=== PATIENT | male | born 1995 | race American Indian/Alaskan Native ===

== ENCOUNTER 2016-11-12 13:47 | Inpatient (IN) | payer OTHER ==
[2016-11-12] MEDS ORDERED: NACL 0.9% 1000 ML 1,000 ML IV ONE ×2 (14:12→15:50)
[2016-11-12] MEDS ORDERED: ZOFRAN IV ONE (14:28)
[2016-11-12] MEDS ORDERED: MORPHINE IV ONE (14:28)
[2016-11-12 15:24] LABS: Mean Corpuscular HGB Conc 31 % (32-34); Mean Corpuscular Hemoglobin 28 pg (28-32); Mean Corpuscular Volume 89 fl (84-94); Platelet Count 222 K/mm3 (140-440); Red Blood Count 5.44 M/mm3 (3.65-5.03); Red Cell Distribution Width 13.4 % (13.2-15.2); White Blood Count 18.4 K/mm3 (4.5-11.0)
[2016-11-12 15:41] LABS: Bilirubin,Urine NEG (Negative); Blood,Urine NEG (Negative); Ketones,Urine 80 mg/dL (Negative); Leukocyte Esterase,Urine NEG (Negative); Mucus,Urine FEW /HPF; Nitrite,Urine NEG (Negative); Protein,Urine <15 mg/dL mg/dL (Negative); Urobilinogen,Urine < 2.0 mg/dL (<2.0); WBC,Urine < 1.0 /HPF (0.0-6.0)
[2016-11-12 15:43] LABS: Alanine Aminotransferase 30 units/L (7-56); Albumin 4.3 g/dL (3.9-5); Albumin/Globulin Ratio 1.4 %; Alkaline Phosphatase 147 units/L (35-129); Anion Gap 46 mmol/L; BUN/Creatinine Ratio 13.12; Bilirubin,Total 0.3 mg/dL (0.1-1.2); Blood Urea Nitrogen 21 mg/dL (9-20); Calcium 9.6 mg/dL (8.4-10.2); Carbon Dioxide 14 mmol/L (22-30); Chloride 88.1 mmol/L (98-107); Potassium 5.3 mmol/L (3.6-5.0); Sodium 143 mmol/L (137-145); Total Protein 7.3 g/dL (6.3-8.2)
[2016-11-12 15:45] LABS: Glucose 679 mg/dL (75-100)
[2016-11-12 15:46] LABS: Hematocrit 48.4 % (35.5-45.6)
[2016-11-12] MEDS ORDERED: D50W (25GM) IV PRN (15:52)
--- NOTE | 2016-11-12 15:55 | Emergency Department Report ---
HPI - General Chief Complaint: Hyperglycemia Time Seen by Provider: 11/12/16 14:12 - HPI HPI: The patient is a 20-year-old male with a history of diabetes. The patient presents for evaluation of abdominal pain, generalized, cramping in quality, 7/ 10 in severity, exacerbated with retching, and associated with nausea and multiple episodes of nonbilious, nonbloody emesis. The patient states that his symptoms are consistent with previous episodes of DKA. The patient denies fever , chills, night sweats, diarrhea, blood in the stool, dark tarry stool, dysuria , hematuria, flank pain, genital discharge, inability to pass flatus. ED Past Medical Hx - Past Medical History Hx Diabetes: Yes - Social History Smoking Status: Never Smoker Substance Use Type: None - Medications Home Medications: Home Medications Medication Instructions Recorded Confirmed Last Taken Type Insulin Aspart [NovoLOG Flexpen] 08/29/14 08/29/14 11/11/16 History Insulin Glargine,Hum.rec.anlog 33 units SQ HS 08/29/14 08/29/14 11/11/16 History [Lantus] ED Review of Systems ROS: Stated complaint: HIGH BLOOD SUGAR Other details as noted in HPI Constitutional: denies: fever ENT: denies: throat or neck pain Respiratory: denies: cough, shortness of breath Cardiovascular: denies: chest pain Endocrine: denies unexplained weight loss or gain Gastrointestinal: reports abdominal pain, nausea Genitourinary: denies: dysuria Musculoskeletal: denies: leg swelling Skin: denies: rash Neurological: denies: headache Hematological/Lymphatic: denies: easy bleeding or easy bruising Psych: denies sadness or hopelessness Physical Exam - Physical Exam Vital Signs: Vital Signs 11/12/16 11/12/16 11/12/16 13:57 14:26 14:38 Temperature 98.3 F Pulse Rate 127 H 119 H Respiratory 24 18 19 Rate Blood Pressure 122/77 O2 Sat by Pulse 98 99 93 Oximetry 11/12/16 11/12/16 11/12/16 14:41 14:51 14:52 Temperature Pulse Rate 113 H 118 H Respiratory 16 16 Rate Blood Pressure 92/50 O2 Sat by Pulse 93 Oximetry Physical Exam: General: well-nourished, well-developed, no acute distress Head: Normocephalic, atraumatic Eyes: normal sclera ENT: Mucous membranes are pale and dry Neck: No neck stiffness, no cervical adenopathy Respiratory: Breath sounds equal bilaterally, no wheezing, rales, or rhonchi Cardio: S1 and S2 present, no murmurs, rubs, gallops, capillary refill is delayed Abdomen: Normoactive bowel sounds, soft abdomen, generalized tenderness to palpation present, no rigidity, no guarding or rebound tenderness Chest WALL/Back: No tenderness to palpation of the chest wall, no CVA tenderness with percussion Musc: No pitting edema Skin: No rash Neuro: no facial drooping, normal speech Psych: Normal affect ED Course Vital Signs 11/12/16 11/12/16 11/12/16 13:57 14:26 14:38 Temperature 98.3 F Pulse Rate 127 H 119 H Respiratory 24 18 19 Rate Blood Pressure 122/77 O2 Sat by Pulse 98 99 93 Oximetry 11/12/16 11/12/16 11/12/16 14:41 14:51 14:52 Temperature Pulse Rate 113 H 118 H Respiratory 16 16 Rate Blood Pressure 92/50 O2 Sat by Pulse 93 Oximetry ED Medical Decision Making - Lab Data Result diagrams: 11/12/16 15:00 11/12/16 15:00 - Medical Decision Making The patient was seen and examined by myself. The patient is placed on a cardiac/vascular sonographer and continuous pulse ox. On initial evaluation, the patient was found to be in no distress. Evaluation orders were placed. The patient is given 2 L normal saline fluid bolus for treatment of dehydration. Lab results reveal low pH 7.13, elevated glucose 670, with low bicarbonate, elevated anion gap, and elevated ketones, consistent with DKA. Labs also show elevated potassium level, lactic acid 6.7, and elevated creatinine 1.6. IV insulin bolus and infusion are ordered. The on-call hospitalist service was contacted. They agreed to admit the patient for further treatment and close monitoring. The ED admit order was placed. The patient will be admitted in critical condition to the ICU. Critical Care Time: Yes Critical care time in (mins) excluding proc time.: 35 Critical care attestation.: Due to the critical nature of this patients presentation, which necessitated multiple bedside assessments, manipulation and supportive measures to prevent further life threatening deterioration, I would like to bill for a total of 35 minutes of critical care time. This was exclusive of any separately billable procedures. Critical Care Time: 35 ED Disposition Clinical Impression: Dehydration, Acute generalized abdominal pain, SRUTHI (acute kidney injury), Acute hyperkalemia DKA (diabetic ketoacidoses) Qualifiers: Diabetes mellitus type: type 1 Diabetes mellitus complication detail: without coma Qualified Code(s): E10.10 - Type 1 diabetes mellitus with ketoacidosis without coma Disposition: OP ADMITTED IP TO THIS HOSP Is pt being admited?: Yes Does the pt Need Aspirin: Yes Condition: Critical Time of Disposition: 15:35
[2016-11-12 16:22] LABS: Magnesium 2.2 mg/dL (1.7-2.3); Phosphorous 7.5 mg/dL (2.5-4.5)
--- NOTE | 2016-11-12 16:31 | Admit Criteria Form ---
Admission Criteria Documentation: DIABETES Clinical Indications for Admission to Inpatient Care (Place 'X' for any and all applicable criteria): Admission is indicated by presence of ALL (if I & II) or ANY ONE (if III or IV) of the following (1)(2)(3)(4): [X]I. Diabetes is uncontrolled as indicated by ANY ONE of the following: [X]a) Diabetic ketoacidosis as indicated by ALL of the following (8): [X]i) Hyperglycemia (eg, plasma glucose greater than 200 mg/ dL (11.1 mmol/L)) [X]ii) Acidosis (eg, arterial pH less than 7.30, serum bicarbonate level less than 15 mEq/L (mmol/L)) [X]iii) Moderate ketonuria or ketonemia [ ]b) Hyperglycemic hyperosmolar state as indicated by ALL of the following(9)(10): [ ]i) Neurologic dysfunction (eg, stupor, coma, hemiparesis , seizure)(13) [ ]ii) Plasma glucose greater than 600 mg/dL (33.3 mmol/L) [ ]iii) Serum osmolality greater than 320 mOsm/kg (mmol/kg) [ ]c) Severe signs or symptoms secondary to hyperglycemia indicated by ANY ONE of the following: [ ]i) Altered mental status(10) [ ]ii) Significant hypovolemia or dehydration [ ]iii) Intractable nausea or vomiting [ ]iv) Unexplained fever or severe infection [ ]v) Severe electrolyte abnormality (eg, hypokalemia, hyperkalemia, hypernatremia) [ ]II. Management at other levels of care (Also use Diabetes: Observation Care as appropriate) is not feasible because of ANY ONE of the following: [ ]a) Condition was not adequately corrected with treatment at other levels of care. [ ]b) Treatment at other levels of care is not appropriate because of condition severity (eg, hyperosmolar coma). [ ]III. Contraindications and/or Inappropriate clinical situations for Observational Care in patients with Diabetes, when ANY ONE of the following is required: [ ]a) Patient require specific diagnostic workup or therapeutic intervention 22 [ ]b) Patient with abnormal vital signs or altered mental status 23 [ ]IV. General contraindications and/or Inappropriate clinical situations for Observational Care in patients with Diabetes, when ANY ONE of the following is required: [ ]a) Prediction of prolongation of LOS based on ANY ONE of the following may be considered as a contraindication for observational care 2, 3, 4, 5, 6, 7, 8, 9, 10, 11 [ ]i) Age > 65 yrs. [ ]ii) Patient arriving by ambulance [ ]iii) Patient with high acuity [ ]iv) Patient requiring vital sign monitoring [ ]v) Patient on IV medication [ ]b) Systolic blood pressures 180mmHg 3,12 [ ]c) Patient with altered mental status including delirium and other alteration of consciousness, (3) [ ]d) Patient whose discharge disposition will be to a nursing home home or rehabilitation home should not be managed in Emergency Department Observation Unit. CMS rule requires 3 days hospital stay before such placement.3,13 [ ]e) Patient with failure to thrive due to broad array of etiologies 3,16,17 [ ]f) Inability to ambulate 3,14 Extended stay beyond goal length of stay may be needed for(3)(20): [ ]a) Treatment of precipitating causes [ ]b) Development of hypoglycemia [ ]c) Complications of treatment [ ]d) Complications of decompensated diabetes (eg, acute gastric dilatation, persistent metabolic or neurologic derangement) [ ]e) Active Comorbidities [ ]f) Older patients( 65 years or older) The original [employer] content created by [employer] has been revised. The portions of the content which have been revised are identified through the use of italic text or in bold,and [facility] has neither reviewed nor approved the modified material. All other unmodified content is copyright [employer]. Please see references footnoted in the original [employer] edition 2016 Admission Criteria Met: Yes
[2016-11-12] MEDS ORDERED: NovoLIN R 100 UNITS in NACL 0.9% 99 ML IV SCH (17:00)
[2016-11-12] MEDS ORDERED: NACL 0.9% 1000 ML 1,000 ML ONE (20:23)
[2016-11-12] MEDS: D5W/0.45% NACL/KCL 20 MEQ 20 MEQ/1,000 ML BAG IV SCH (21:35)
[2016-11-12] MEDS ORDERED: NACL 0.9% 1000 ML 1,000 ML IV SCH (22:00)
--- NOTE | 2016-11-13 00:21 | Event Note ---
Date: 11/12/16 See H/p in reports DKA
[2016-11-13] MEDS ORDERED: DILAUDID IV PRN ×2 (00:34→09:20)
[2016-11-13] MEDS ORDERED: D50W (25GM) IV PRN (00:34)
[2016-11-13 00:51] LABS: Basophils % (Auto) 0.6 % (0.0-1.8); Hematocrit 40.2 % (35.5-45.6); Hemoglobin 13.2 gm/dl (11.8-15.2); Mean Corpuscular HGB Conc 33 % (32-34); Mean Corpuscular Hemoglobin 28 pg (28-32); Mean Corpuscular Volume 84 fl (84-94); Platelet Count 196 K/mm3 (140-440); Red Blood Count 4.79 M/mm3 (3.65-5.03); Red Cell Distribution Width 12.9 % (13.2-15.2)
[2016-11-13] MEDS ORDERED: NovoLIN R 100 UNITS in NACL 0.9% 99 ML IV SCH (01:00)
[2016-11-13 01:20] LABS: BUN/Creatinine Ratio 11.66; Blood Urea Nitrogen 14 mg/dL (9-20); Calcium 8.5 mg/dL (8.4-10.2); Carbon Dioxide 27 mmol/L (22-30); Chloride 103.4 mmol/L (98-107); Glucose 153 mg/dL (75-100); Magnesium 2.1 mg/dL (1.7-2.3); Sodium 143 mmol/L (137-145)
[2016-11-13 01:21] LABS: Anion Gap 17 mmol/L
--- NOTE | 2016-11-13 01:21 | History and Physical Report ---
CHIEF COMPLAINT: Abdominal pain and generalized cramping since morning. 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 The patient has a history of juvenile diabetes and is on insulin 33 units at night time of Lantus and also sliding scale before each meal. The patient states he has been compliant. No fever, no chills. The patient had multiple episodes of DKA. No dysuria, no flank pain. No urinary frequency. PAST MEDICAL HISTORY: As mentioned, juvenile diabetes. SOCIAL HISTORY: Does not smoke. FAMILY HISTORY: No hypertension, no diabetes. CURRENT MEDICATIONS: Lantus 33 units subQ at bedtime and NovoLog FlexPen with 6-10 units depending on sliding scale before each meals. REVIEW OF SYSTEMS: Significant for nausea, vomiting and severe abdominal pain, which is about 7 on a scale of 1-10. CONSTITUTION: No fever, no chills. RESPIRATORY: No cough, no shortness of breath. CARDIOVASCULAR: No chest pain, no palpitations. ENDOCRINE: No unexplained weight loss or gain. GASTROINTESTINAL: Abdominal pain, nausea, vomiting as mentioned in history of present illness. GENITOURINARY: Denies dysuria, flank pain. MUSCULOSKELETAL: No leg pain. No joint pains. SKIN: No rashes. CENTRAL NERVOUS SYSTEM: No headaches. HEMATOLOGIC AND LYMPHATIC: Denies easy bleeding or easy bruising. PSYCHIATRIC: Denies sadness, depression and anxiety. A 14-point review of system was done, essentially negative. PHYSICAL EXAMINATION: GENERAL: Young male, lying in slight distress secondary to abdominal pain. VITAL SIGNS: Temperature is 98.3, pulse is 127, respiratory rate is 24, blood pressure is 122/77. HEENT: Unremarkable. Tongue dry. NECK: Supple, no lymphadenopathy, no thyromegaly. LUNGS: Clear to auscultation and percussion. Good air entry. CARDIOVASCULAR: S1, S2 heard. No gallop, no murmur, no rub. Apical impulse in left fifth intercostal space and midclavicular line. ABDOMEN: Tender in the epigastric periumbilical region. No guarding, no rigidity. Bowel sounds are normal. EXTREMITIES: Good pedal pulses. No pedal edema. CENTRAL NERVOUS SYSTEM: Alert and oriented x 4, nonfocal exam. LABORATORY DATA: Significant for white count of 18,400. H is 15.0 and 48.4, platelet count is 222,000. Venous pH is 7.127. Sodium is 143, potassium is 5.3, chloride is 88, bicarbonate is 14 and low, glucose is 609 and lactic acid is 6.7, alkaline phosphatase is 147. Phosphorus was 7.5. Urine is negative except for glucose of more than 500, specific gravity is 1.023 ketones 87. ASSESSMENT AND PLAN: 1. Diabetic ketoacidosis. The patient was initiated on DKA protocol. Also dietary consultation requested. The patient has slightly high potassium, which should correct with IV insulin drip. Acute abdominal pain, symptomatic treatment. Dilaudid 1 mg and Zofran 4 mg q.3 p.r.n. 2. Leukocytosis. No source of infection identified. We will start him on Rocephin 2 g IV piggyback empirically. 3. Deep venous thrombosis prophylaxis, Lovenox 40 mg subcutaneous daily. CRITICAL CARE STATEMENT: The patient being admitted to the ICU because of the DKA and IV insulin drip. Because of the high probability of clinically significant sudden or life threatening deterioration of cardiovascular system and endocrine system, required my full and direct attention, intervention and personal management. The aggregate critical care time was 35 minutes. The time spent performing reported procedures that includes the following data reviewed and interpretation, patient assessment and monitoring of vital signs, documentation, medication orders and management. JOB# [id number] LAYLA/ADA
[2016-11-13] MEDS: D5W/0.45% NACL/KCL 20 MEQ 20 MEQ/1,000 ML BAG IV SCH ×2 (05:26→13:18)
[2016-11-13 05:52] LABS: Blood Urea Nitrogen 14 mg/dL (9-20); Calcium 8.2 mg/dL (8.4-10.2); Carbon Dioxide 25 mmol/L (22-30); Chloride 104.2 mmol/L (98-107); Glucose 127 mg/dL (75-100); Potassium 3.8 mmol/L (3.6-5.0); Sodium 141 mmol/L (137-145)
[2016-11-13 05:57] LABS: Anion Gap 16 mmol/L
[2016-11-13 09:45] LABS: Anion Gap 17 mmol/L; BUN/Creatinine Ratio 10.83; Blood Urea Nitrogen 13 mg/dL (9-20); Calcium 8.6 mg/dL (8.4-10.2); Carbon Dioxide 24 mmol/L (22-30); Chloride 103.6 mmol/L (98-107); Glucose 124 mg/dL (75-100); Potassium 3.7 mmol/L (3.6-5.0); Sodium 141 mmol/L (137-145)
[2016-11-13] MEDS: ROCEPHIN/NS 2 GM/100 ML 2 GM/100 ML BAG IV SCH (10:29)
[2016-11-13] MEDS ORDERED: LEVEMIR SUB-Q ONE (10:30)
[2016-11-13] MEDS: LOVENOX SUB-Q SCH (10:37)
--- NOTE | 2016-11-13 11:25 | Consultation ---
History of Present Illness Consult date: 11/13/16 Requesting physician: JOSIE BEAN Reason for consult: other (DKA) History of present illness: PULMONARY/CCM CONSULT NOTE (Full dictation #) Please see dictated notes for full details Medications and Allergies Allergies Allergy/AdvReac Type Severity Reaction Status Date / Time No Known Allergies Allergy Unverified 08/27/15 15:25 Home Medications Medication Instructions Recorded Confirmed Last Taken Type Insulin Aspart [NovoLOG Flexpen] 08/29/14 08/29/14 11/11/16 History Insulin Glargine,Hum.rec.anlog 33 units SQ HS 08/29/14 08/29/14 11/11/16 History [Lantus] Active Meds: Active Medications Dextrose (D50w (25gm)) 0 ml IV PRN PRN PRN Reason: Hypoglycemia Enoxaparin Sodium (Lovenox) 40 mg SUB-Q QDAY [facility] Last Admin: 11/13/16 10:37 Dose: 40 mg Hydromorphone HCl (Dilaudid) 0.5 mg IV Q3H PRN PRN Reason: Pain , Severe (7-10) Potassium Chloride/Dextrose/Sod Cl (D5w/0.45% Nacl/Kcl 20 Meq) 20 meq in 1,000 mls @ 125 mls/hr IV DIRECT JONNY Last Admin: 11/13/16 05:26 Dose: 125 mls/hr Sodium Chloride (Nacl 0.9% 1000 Ml) 1,000 mls @ 125 mls/hr IV DIRECT JONNY Ceftriaxone Sodium (Rocephin/Ns 2 Gm/100 Ml) 2 gm in 100 mls @ 200 mls/hr IV Q24HR JONNY Last Admin: 11/13/16 10:29 Dose: 200 mls/hr Influenza Virus Vaccine Quadrival (Fluarix Quad [id number](36 Mos+)) 60 mcg IM .ONCE ONE Stop: 11/13/16 12:01 Pneumococcal Polyvalent Vaccine (Pneumovax 23) 0.5 ml IM .ONCE ONE Stop: 11/13/16 12:01 Physical Examination Vital signs: Vital Signs Temp Pulse Resp BP Pulse Ox 98.3 F 127 H 24 122/77 98 11/12/16 13:57 11/12/16 13:57 11/12/16 13:57 11/12/16 13:57 11/12/16 13:57 Results - Laboratory Findings CBC and BMP: 11/13/16 00:34 11/13/16 09:02 Abnormal lab findings: Abnormal Labs 11/12/16 11/12/16 11/12/16 21:06 22:22 23:42 WBC RDW Lymph % (Auto) [place] # Seg Neutrophils % Seg Neutrophils # Glucose POC Glucose 198 H 159 H 152 H Calcium Phosphorus 11/13/16 11/13/16 11/13/16 00:34 00:34 00:46 WBC 15.0 H RDW 12.9 L Lymph % (Auto) 8.1 L [place] # 1.0 H Seg Neutrophils % 84.9 H Seg Neutrophils # 12.7 H Glucose 153 H POC Glucose 166 H Calcium Phosphorus 2.0 L D 11/13/16 11/13/16 11/13/16 05:30 06:37 09:02 WBC RDW Lymph % (Auto) [place] # Seg Neutrophils % Seg Neutrophils # Glucose 127 H 124 H POC Glucose 123 H Calcium 8.2 L Phosphorus
[2016-11-13] MEDS ORDERED: PNEUMOVAX 23 IM ONE (12:00)
[2016-11-13] MEDS ORDERED: FLUARIX QUAD 2016-2017(36 MOS+) IM ONE (12:00)
[2016-11-13 13:31] LABS: Blood Urea Nitrogen 12 mg/dL (9-20); Calcium 8.7 mg/dL (8.4-10.2); Carbon Dioxide 24 mmol/L (22-30); Glucose 137 mg/dL (75-100); Potassium 3.7 mmol/L (3.6-5.0); Sodium 141 mmol/L (137-145)
[2016-11-13 13:32] LABS: Anion Gap 20 mmol/L; Chloride 100.6 mmol/L (98-107)
--- NOTE | 2016-11-13 14:43 | Event Note ---
Date: 11/13/16 Critical Care Consult placed due to need for I.V. insulin therapy Seen and examined and doing better Off IV insulin and transferring to floor ...will sign off
--- NOTE | 2016-11-13 17:22 | Progress Note ---
Assessment and Plan Assessment and plan: Patient is a 20-year-old -Indian male with a history of juvenile diabetes admitted with abdominal pain, generalized cramping, she is vomiting since morning of admission was noted to have DKA and was admitted for the management. He denies any sick contact denies any antidepressant having any kind of gastric enteritis. * DKA-now resolved * Diabetes mellitus juvenile type * Leukocytosis-reactive * Abdominal pain * Gastroenteritis Plan * Transfer patient to the medical floor as an ion gap has closed * Restart home medication with Lantus 33 units at nighttime with sliding scale coverage during the day * Diabetic education considered multiple episodes of DKA * Compliance stressed in detail * Monitor leukocytosis to ensure resolution * DVT and GI prophylaxis History Interval history: Patient seen and examined this morning in no acute distress, reports some improvement. Denies any chest pain, nausea, vomiting, diarrhea No fever noted blood pressure controlled No adverse events reported to me by nursing staff Hospitalist Physical - Physical exam Narrative exam: VITAL SIGNS: Reviewed. GENERAL: The patient appeared well nourished and normally developed. Vital signs as documented. HEAD: No signs of head trauma. EYES: Pupils are equal. Extraocular motions intact. EARS: Hearing grossly intact. MOUTH: Oropharynx is normal. NECK: No adenopathy, no JVD. CHEST: Chest with clear breath sounds bilaterally. No wheezes, rales, or rhonchi. CARDIAC: Regular rate and rhythm. S1 and S2, without murmurs, gallops, or rubs. VASCULAR: No Edema. Peripheral pulses normal and equal in all extremities. ABDOMEN: Soft, without detectable tenderness. No sign of distention. No rebound or guarding, and no masses palpated. Bowel Sounds normal. MUSCULOSKELETAL: Good range of motion of all major joints. Extremities without clubbing, cyanosis or edema. NEUROLOGIC EXAM: Alert and oriented x 3. No focal sensory or strength deficits. Speech normal. Follows commands. PSYCHIATRIC: Mood normal. SKIN: No rash or lesions. - Constitutional Vitals: Temp Pulse Resp BP Pulse Ox 264 F H 75 15 116/85 97 11/13/16 00:21 11/13/16 16:01 11/13/16 16:01 11/13/16 16:01 11/13/16 12:00 Results - Labs CBC & Chem 7: 11/13/16 00:34 11/13/16 13:00 Labs: Laboratory Last Values WBC 15.0 K/mm3 (4.5-11.0) H 11/13/16 00:34 RBC 4.79 M/mm3 (3.65-5.03) 11/13/16 00:34 Hgb 13.2 gm/dl (11.8-15.2) 11/13/16 00:34 Hct 40.2 % (35.5-45.6) D 11/13/16 00:34 MCV 84 fl (84-94) D 11/13/16 00:34 MCH 28 pg (28-32) 11/13/16 00:34 MCHC 33 % (32-34) 11/13/16 00:34 RDW 12.9 % (13.2-15.2) L 11/13/16 00:34 Plt Count 196 K/mm3 (140-440) 11/13/16 00:34 Lymph % (Auto) 8.1 % (13.4-35.0) L 11/13/16 00:34 [place] % (Auto) 6.4 % (0.0-7.3) 11/13/16 00:34 Eos % (Auto) 0.0 % (0.0-4.3) 11/13/16 00:34 Baso % (Auto) 0.6 % (0.0-1.8) 11/13/16 00:34 Lymph # 1.2 K/mm3 (1.2-5.4) 11/13/16 00:34 [place] # 1.0 K/mm3 (0.0-0.8) H 11/13/16 00:34 Eos # 0.0 K/mm3 (0.0-0.4) 11/13/16 00:34 Baso # 0.1 K/mm3 (0.0-0.1) 11/13/16 00:34 Seg Neutrophils % 84.9 % (40.0-70.0) H 11/13/16 00:34 Seg Neutrophils # 12.7 K/mm3 (1.8-7.7) H 11/13/16 00:34 VBG pH 7.127 (7.320-7.420) L* 11/12/16 15:00 Sodium 141 mmol/L (137-145) 11/13/16 13:00 Potassium 3.7 mmol/L (3.6-5.0) 11/13/16 13:00 Chloride 100.6 mmol/L (98-107) 11/13/16 13:00 Carbon Dioxide 24 mmol/L (22-30) 11/13/16 13:00 Anion Gap 20 mmol/L 11/13/16 13:00 BUN 12 mg/dL (9-20) 11/13/16 13:00 Creatinine 1.1 mg/dL (0.8-1.5) 11/13/16 13:00 Estimated GFR > 60 ml/min 11/13/16 13:00 BUN/Creatinine Ratio 10.90 % 11/13/16 13:00 Glucose 137 mg/dL (75-100) H 11/13/16 13:00 POC Glucose 78 (70-105) 11/13/16 16:52 Lactic Acid 6.7 mmol/L (0.7-2.0) H* 11/12/16 15:00 Calcium 8.7 mg/dL (8.4-10.2) 11/13/16 13:00 Phosphorus 2.0 mg/dL (2.5-4.5) L D 11/13/16 00:34 Magnesium 2.1 mg/dL (1.7-2.3) 11/13/16 00:34 Total Bilirubin 0.3 mg/dL (0.1-1.2) 11/12/16 15:00 AST 40 units/L (5-40) 11/12/16 15:00 ALT 30 units/L (7-56) 11/12/16 15:00 Alkaline Phosphatase 147 units/L (35-129) H 11/12/16 15:00 Total Protein 7.3 g/dL (6.3-8.2) 11/12/16 15:00 Albumin 4.3 g/dL (3.9-5) 11/12/16 15:00 Albumin/Globulin Ratio 1.4 % 11/12/16 15:00 Urine Color Straw (Yellow) 11/12/16 14:59 Urine Turbidity Clear (Clear) 11/12/16 14:59 Urine pH 5.0 (5.0-7.0) 11/12/16 14:59 Ur Specific [place] 1.023 (1.003-1.030) 11/12/16 14:59 Urine Protein <15 mg/dl mg/dL (Negative) 11/12/16 14:59 Urine Glucose (UA) >=500 mg/dL (Negative) 11/12/16 14:59 Urine Ketones 80 mg/dL (Negative) 11/12/16 14:59 Urine Blood Neg (Negative) 11/12/16 14:59 Urine Nitrite Neg (Negative) 11/12/16 14:59 Urine Bilirubin Neg (Negative) 11/12/16 14:59 Urine Urobilinogen < 2.0 mg/dL (<2.0) 11/12/16 14:59 Ur Leukocyte Esterase Neg (Negative) 11/12/16 14:59 Urine WBC (Auto) < 1.0 /HPF (0.0-6.0) 11/12/16 14:59 Urine RBC (Auto) 0.0 /HPF (0.0-6.0) 11/12/16 14:59 Urine Mucus Few /HPF 11/12/16 14:59 Ketones 87.0 mg/dL (0.2-2.8) H 11/12/16 15:00
[2016-11-13 17:38] LABS: Anion Gap 17 mmol/L; Blood Urea Nitrogen 10 mg/dL (9-20); Calcium 8.8 mg/dL (8.4-10.2); Carbon Dioxide 26 mmol/L (22-30); Chloride 100.4 mmol/L (98-107); Glucose 80 mg/dL (75-100); Potassium 3.3 mmol/L (3.6-5.0); Sodium 140 mmol/L (137-145)
[2016-11-13] MEDS ORDERED: INSULIN GLARGINE HUM REC ANLOG SQ SCH (22:00)
[2016-11-14 01:31] LABS: Anion Gap 16 mmol/L; Blood Urea Nitrogen 8 mg/dL (9-20); Calcium 8.4 mg/dL (8.4-10.2); Carbon Dioxide 26 mmol/L (22-30); Chloride 99.5 mmol/L (98-107); Glucose 92 mg/dL (75-100); Potassium 3.3 mmol/L (3.6-5.0); Sodium 138 mmol/L (137-145)
[2016-11-14 05:42] LABS: Hematocrit 38.3 % (35.5-45.6); Hemoglobin 12.6 gm/dl (11.8-15.2); Mean Corpuscular HGB Conc 33 % (32-34); Mean Corpuscular Hemoglobin 28 pg (28-32); Mean Corpuscular Volume 84 fl (84-94); Platelet Count 155 K/mm3 (140-440); Red Blood Count 4.54 M/mm3 (3.65-5.03); Red Cell Distribution Width 12.9 % (13.2-15.2); White Blood Count 6.3 K/mm3 (4.5-11.0)
[2016-11-14 05:59] LABS: Anion Gap 14 mmol/L; BUN/Creatinine Ratio 11.42; Blood Urea Nitrogen 8 mg/dL (9-20); Calcium 8.5 mg/dL (8.4-10.2); Carbon Dioxide 25 mmol/L (22-30); Chloride 99.4 mmol/L (98-107); Glucose 70 mg/dL (75-100); Potassium 3.1 mmol/L (3.6-5.0); Sodium 135 mmol/L (137-145)
[2016-11-14] MEDS ORDERED: K-DUR PO ONE ×2 (09:00→13:00)
--- NOTE | 2016-11-14 09:02 | Discharge Summary ---
Providers - Providers Date of Admission: 11/12/16 17:30 Date of discharge: 11/14/16 Attending physician: JOSIE BEAN MD 11/13/16 00:36 Consult to Dietitian/Nutrition [CONS] Routine Physician Instructions: Reason For Exam: DKA Reason for Consult: Nutrition Recommendations Reason for Consult: Diet education 11/13/16 07:34 Consult to Physician [CONS] Routine Consulting Provider: HALEIGH LAWSON Reason For Exam: critical care management Place consult to:: Dr. Lawson Notified:: Yes Comment:: talked to Dr. Lawson via phone Primary care physician: ENERGY ENGINEER Hospitalization Condition: Stable Disposition: DISCHARGED TO HOME OR SELFCARE Time spent for discharge: 35 mins Exam - Constitutional Vitals: Temp Pulse Resp BP Pulse Ox 98.3 F 78 18 119/77 98 11/14/16 04:00 11/14/16 04:00 11/14/16 04:00 11/14/16 04:00 11/14/16 04:00 Plan Activity: advance as tolerated, fall precautions Diet: diabetic Special Instructions: other (must be compliant with medication) Follow up with: PRIMARY CARE, [Primary Care Provider] - 3-5 Days Prescriptions: Insulin Aspart [NovoLOG Flexpen] See Protocol SUB-Q ACHS #30 [email or web address]
[2016-11-14 09:43] VITALS: BP 128/89
[2016-11-14] MEDS: ROCEPHIN/NS 2 GM/100 ML 2 GM/100 ML BAG IV SCH (13:00)
[2016-11-14] MEDS: LOVENOX SUB-Q SCH (13:00)
== END 2016-11-14 15:25 | disposition home or self-care (01) | DRG 638 ==
LOC: ED 13:47 → CC1 17:30 → 4A 11-13 17:31
PROVIDERS: ADMIT Internal Medicine; ATTEND Internal Medicine
PROC: 3E0234Z Introduction of Serum, Toxoid and Vaccine into Muscle, Percutaneous Approach (ICD-10-PCS; principal; 2016-11-13)
DX: E10.10 Type 1 diabetes mellitus with ketoacidosis without coma (principal); N17.9 Acute kidney failure, unspecified; E86.0 Dehydration; E87.5 Hyperkalemia; D72.829 Elevated white blood cell count, unspecified; K52.9 Noninfective gastroenteritis and colitis, unspecified; Z79.4 Long term (current) use of insulin; Z23 Encounter for immunization; Z79.899 Other long term (current) drug therapy
CPT/HCPCS: 36415; 80048; 80053; 81001; 82010; 82140; 82805; 82962; 83036; 83735; 84100; 85025; 85027; 90686; 90732; 94760; 96361; 96374; 96375; J0696; J1650; J1815; J1818; J2270; J2405; J7030

== ENCOUNTER 2017-09-03 19:12 | Inpatient (IN) | payer MEDICAID ==
[2017-09-03] MEDS ORDERED: ZOFRAN ODT PO ONE (20:10)
[2017-09-03 20:34] LABS: Basophils # (Auto) 0.1 K/mm3 (0.0-0.1); Basophils % (Auto) 0.6 % (0.0-1.8); Eosinophils % (Auto) 0.1 % (0.0-4.3); Hematocrit 46.3 % (35.5-45.6); Lymphocytes # (Auto) 1.4 K/mm3 (1.2-5.4); Lymphocytes % (Auto) 15.8 % (13.4-35.0); Mean Corpuscular HGB Conc 32 % (32-34); Mean Corpuscular Hemoglobin 28 pg (28-32); Mean Corpuscular Volume 86 fl (84-94); Monocytes # (Auto) 0.2 K/mm3 (0.0-0.8); Monocytes % (Auto) 2.2 % (0.0-7.3); Platelet Count 252 K/mm3 (140-440); Red Cell Distribution Width 13.2 % (13.2-15.2)
[2017-09-03 20:51] LABS: Bilirubin,Urine NEG (Negative); Blood,Urine NEG (Negative); Color,Urine Straw (Yellow); Mucus,Urine FEW /HPF; Nitrite,Urine NEG (Negative); Protein,Urine <15 mg/dL mg/dL (Negative); Urobilinogen,Urine < 2.0 mg/dL (<2.0); WBC,Urine < 1.0 /HPF (0.0-6.0)
[2017-09-03 21:13] LABS: Alanine Aminotransferase 30 units/L (7-56); Albumin 4.6 g/dL (3.9-5); BUN/Creatinine Ratio 20; Blood Urea Nitrogen 20 mg/dL (9-20); Calcium 9.7 mg/dL (8.4-10.2); Hemolysis Index 20
[2017-09-03 21:26] LABS: Bilirubin,Urine NEG (Negative); Blood,Urine NEG (Negative); Color,Urine Colorless (Yellow); Mucus,Urine FEW /HPF; Nitrite,Urine NEG (Negative); Protein,Urine <15 mg/dL mg/dL (Negative); Urobilinogen,Urine < 2.0 mg/dL (<2.0)
[2017-09-03] MEDS ORDERED: NACL 0.9% 1000 ML 2,000 ML IV ONE (23:18)
[2017-09-03] MEDS ORDERED: REGLAN IV ONE (23:18)
[2017-09-03] MEDS ORDERED: D50W (25GM) Syringe IV PRN (23:18)
--- NOTE | 2017-09-03 23:20 | Emergency Department Report ---
ED General Adult HPI - General Chief complaint: Nausea/Vomiting/Diarrhea Stated complaint: SICK/TYPE 1 DIABETIC Time Seen by Provider: 09/03/17 23:12 Source: patient, RN notes reviewed, old records reviewed Mode of arrival: Ambulatory Limitations: No Limitations - History of Present Illness Initial comments: This is a 21-year-old male who was previously unknown to this provider, has a past medical history of diabetic ketoacidosis. Presents to the ER with headache , nausea, weakness, malaise, generalized fatigue. Symptoms are constant for 1 day. They're constant. It did not radiate anywhere. It worsened physical exertion, eating, drinking, decreased with rest. Patient is concerned that he has carbon monoxide poisoning, because he reports that the oven/stove was on at home. -: Gradual Location: head Radiation: non-radiation Quality: aching Consistency: constant Improves with: rest Worsens with: eating, movement Associated Symptoms: headaches, loss of appetite, malaise, nausea/vomiting, weakness. denies: confusion, chest pain, cough, diaphoresis - Related Data Home Medications Medication Instructions Recorded Confirmed Last Taken Insulin Glargine,Hum.rec.anlog 33 units SQ HS 08/29/14 08/29/14 11/11/16 [Lantus] Previous Rx's Medication Instructions Recorded Last Taken Type Insulin Aspart [NovoLOG Flexpen] See Protocol SUB-Q ACHS #30 11/14/16 Unknown Rx insuln.pen Allergies Allergy/AdvReac Type Severity Reaction Status Date / Time No Known Allergies Allergy Unverified 08/27/15 15:25 ED Review of Systems ROS: Stated complaint: SICK/TYPE 1 DIABETIC Other details as noted in HPI Constitutional: malaise Eyes: denies: vision change ENT: denies: epistaxis Cardiovascular: denies: chest pain Gastrointestinal: nausea, vomiting Genitourinary: as per HPI Musculoskeletal: as per HPI Skin: as per HPI Neurological: as per HPI, headache, weakness Psychiatric: as per HPI ED Past Medical Hx - Past Medical History Hx Diabetes: Yes Hx HIV: No - Social History Smoking Status: Current Every Day Smoker Substance Use Type: None - Medications Home Medications: Home Medications Medication Instructions Recorded Confirmed Last Taken Type Insulin Glargine,Hum.rec.anlog 33 units SQ HS 08/29/14 08/29/14 11/11/16 History [Lantus] Insulin Aspart [NovoLOG Flexpen] See Protocol SUB-Q ACHS #30 11/14/16 Unknown Rx insuln.pen ED Physical Exam - General Limitations: No Limitations General appearance: alert, in no apparent distress - Head Head exam: Present: atraumatic, normocephalic - Eye Eye exam: Present: normal appearance, PERRL, EOMI, other (visual acuity intact to finger counting, color perception, reading at a close distance). Absent: nystagmus - ENT ENT exam: Present: normal exam, normal orophraynx, normal external ear exam - Neck Neck exam: Present: normal inspection, full ROM - Respiratory Respiratory exam: Present: normal lung sounds bilaterally. Absent: respiratory distress - Cardiovascular Cardiovascular Exam: Present: regular rate, normal rhythm, normal heart sounds. Absent: systolic murmur, diastolic murmur, rubs, gallop - GI/Abdominal GI/Abdominal exam: Present: soft, normal bowel sounds. Absent: distended, tenderness, guarding, rebound, rigid, pulsatile mass - Rectal Rectal exam: Present: deferred - Extremities Exam Extremities exam: Present: normal inspection, full ROM, normal capillary refill. Absent: tenderness, pedal edema, joint swelling, calf tenderness - Back Exam Back exam: Present: normal inspection, full ROM. Absent: tenderness, CVA tenderness (R), paraspinal tenderness, vertebral tenderness - Neurological Exam Neurological exam: Present: alert, oriented X3, CN II-XII intact, other ( Extraocular movements intact. Tongue midline. No facial droop. Facial sensation intact to light touch in the V1, V2, V3 distribution bilaterally. 5 and 5 strength in 4 extremities.. Sensation is intact to light touch in 4 extremities.). Absent: motor sensory deficit - Psychiatric Psychiatric exam: Present: normal affect, normal mood - Skin Skin exam: Present: warm, dry, intact, normal color. Absent: rash ED Course Vital Signs 09/03/17 09/03/17 09/03/17 19:57 23:00 23:16 Temperature 99 F Pulse Rate 75 88 108 H Respiratory 18 28 H 20 Rate Blood Pressure 121/72 129/66 O2 Sat by Pulse 100 99 Oximetry 09/03/17 09/03/17 09/04/17 23:30 23:46 00:00 Temperature Pulse Rate 94 H 122 H 87 Respiratory 17 12 18 Rate Blood Pressure 129/66 129/66 127/77 O2 Sat by Pulse 98 98 99 Oximetry 09/04/17 09/04/17 09/04/17 00:16 00:30 00:46 Temperature Pulse Rate 111 H 85 85 Respiratory 22 15 14 Rate Blood Pressure 127/77 127/77 127/77 O2 Sat by Pulse 96 100 97 Oximetry 09/04/17 09/04/17 09/04/17 01:00 01:15 01:30 Temperature Pulse Rate 88 136 H 83 Respiratory 16 17 14 Rate Blood Pressure 86/48 89/53 96/54 O2 Sat by Pulse 100 98 100 Oximetry 09/04/17 09/04/17 09/04/17 01:45 02:00 02:15 Temperature Pulse Rate 105 H 83 100 H Respiratory 17 14 20 Rate Blood Pressure 103/58 101/52 99/54 O2 Sat by Pulse 100 100 100 Oximetry 09/04/17 09/04/17 09/04/17 02:30 02:45 03:00 Temperature Pulse Rate 97 H 88 94 H Respiratory 12 15 18 Rate Blood Pressure 106/60 96/60 106/57 O2 Sat by Pulse 100 100 98 Oximetry 09/04/17 09/04/17 09/04/17 03:15 03:30 03:46 Temperature Pulse Rate 100 H 105 H 95 H Respiratory 16 13 16 Rate Blood Pressure 91/52 96/53 96/53 O2 Sat by Pulse 99 100 99 Oximetry ED Medical Decision Making - Lab Data Result diagrams: 09/03/17 20:19 09/04/17 03:48 Vital Signs 09/03/17 19:57 Temperature 99 F Pulse Rate 75 Respiratory 18 Rate Blood Pressure 121/72 O2 Sat by Pulse 100 Oximetry Lab Results 09/03/17 09/03/17 09/03/17 Range/Units 20:11 20:19 20:19 WBC 9.0 (4.5-11.0) K/mm3 RBC 5.40 H (3.65-5.03) M/mm3 Hgb 15.0 (11.8-15.2) gm/dl Hct 46.3 H (35.5-45.6) % MCV 86 (84-94) fl MCH 28 (28-32) pg MCHC 32 (32-34) % RDW 13.2 (13.2-15.2) % Plt Count 252 (140-440) K/mm3 Lymph % (Auto) 15.8 (13.4-35.0) % [place] % (Auto) 2.2 (0.0-7.3) % Eos % (Auto) 0.1 (0.0-4.3) % Baso % (Auto) 0.6 (0.0-1.8) % Lymph # 1.4 (1.2-5.4) K/mm3 [place] # 0.2 (0.0-0.8) K/mm3 Eos # 0.0 (0.0-0.4) K/mm3 Baso # 0.1 (0.0-0.1) K/mm3 Seg Neutrophils % 81.3 H (40.0-70.0) % Seg Neutrophils # 7.3 (1.8-7.7) K/mm3 VBG pH (7.320-7.420) Carboxyhemoglobin Sodium 136 L (137-145) mmol/L Potassium 4.7 (3.6-5.0) mmol/L Chloride 87.0 L (98-107) mmol/L Carbon Dioxide 19 L (22-30) mmol/L Anion Gap 35 mmol/L BUN 20 (9-20) mg/dL Creatinine 1.0 (0.8-1.5) mg/dL Estimated GFR > 60 ml/min BUN/Creatinine Ratio 20 % Glucose 632 H* (75-100) mg/dL POC Glucose 482 H (70-105) Calcium 9.7 (8.4-10.2) mg/dL Phosphorus (2.5-4.5) mg/dL Magnesium (1.7-2.3) mg/dL Total Bilirubin 0.60 (0.1-1.2) mg/dL AST 54 H (5-40) units/L ALT 30 (7-56) units/L Alkaline Phosphatase 113 (35-129) units/L Total Protein 7.3 (6.3-8.2) g/dL Albumin 4.6 (3.9-5) g/dL Albumin/Globulin Ratio 1.7 % Urine Color (Yellow) Urine Turbidity (Clear) Urine pH (5.0-7.0) Ur Specific [place] (1.003-1.030) Urine Protein (Negative) mg/dL Urine Glucose (UA) (Negative) mg/dL Urine Ketones (Negative) mg/dL Urine Blood (Negative) Urine Nitrite (Negative) Urine Bilirubin (Negative) Urine Urobilinogen (<2.0) mg/dL Ur Leukocyte Esterase (Negative) Urine WBC (Auto) (0.0-6.0) /HPF Urine RBC (Auto) (0.0-6.0) /HPF Urine Mucus /HPF 09/03/17 09/03/17 09/03/17 Range/Units 20:19 20:38 21:00 WBC (4.5-11.0) K/mm3 RBC (3.65-5.03) M/mm3 Hgb (11.8-15.2) gm/dl Hct (35.5-45.6) % MCV (84-94) fl MCH (28-32) pg MCHC (32-34) % RDW (13.2-15.2) % Plt Count (140-440) K/mm3 Lymph % (Auto) (13.4-35.0) % [place] % (Auto) (0.0-7.3) % Eos % (Auto) (0.0-4.3) % Baso % (Auto) (0.0-1.8) % Lymph # (1.2-5.4) K/mm3 [place] # (0.0-0.8) K/mm3 Eos # (0.0-0.4) K/mm3 Baso # (0.0-0.1) K/mm3 Seg Neutrophils % (40.0-70.0) % Seg Neutrophils # (1.8-7.7) K/mm3 VBG pH 7.312 L (7.320-7.420) Carboxyhemoglobin Sodium (137-145) mmol/L Potassium (3.6-5.0) mmol/L Chloride (98-107) mmol/L Carbon Dioxide (22-30) mmol/L Anion Gap mmol/L BUN (9-20) mg/dL Creatinine (0.8-1.5) mg/dL Estimated GFR ml/min BUN/Creatinine Ratio % Glucose (75-100) mg/dL POC Glucose (70-105) Calcium (8.4-10.2) mg/dL Phosphorus (2.5-4.5) mg/dL Magnesium (1.7-2.3) mg/dL Total Bilirubin (0.1-1.2) mg/dL AST (5-40) units/L ALT (7-56) units/L Alkaline Phosphatase (35-129) units/L Total Protein (6.3-8.2) g/dL Albumin (3.9-5) g/dL Albumin/Globulin Ratio % Urine Color Straw Colorless (Yellow) Urine Turbidity Clear Clear (Clear) Urine pH 5.0 5.0 (5.0-7.0) Ur Specific [place] 1.027 1.028 (1.003-1.030) Urine Protein <15 mg/dl <15 mg/dl (Negative) mg/dL Urine Glucose (UA) >=500 >=500 (Negative) mg/dL Urine Ketones 80 80 (Negative) mg/dL Urine Blood Neg Neg (Negative) Urine Nitrite Neg Neg (Negative) Urine Bilirubin Neg Neg (Negative) Urine Urobilinogen < 2.0 < 2.0 (<2.0) mg/dL Ur Leukocyte Esterase Neg Neg (Negative) Urine WBC (Auto) < 1.0 1.0 (0.0-6.0) /HPF Urine RBC (Auto) 1.0 1.0 (0.0-6.0) /HPF Urine Mucus Few Few /HPF 09/03/17 09/03/17 09/03/17 Range/Units 23:42 23:42 23:42 WBC (4.5-11.0) K/mm3 RBC (3.65-5.03) M/mm3 Hgb (11.8-15.2) gm/dl Hct (35.5-45.6) % MCV (84-94) fl MCH (28-32) pg MCHC (32-34) % RDW (13.2-15.2) % Plt Count (140-440) K/mm3 Lymph % (Auto) (13.4-35.0) % [place] % (Auto) (0.0-7.3) % Eos % (Auto) (0.0-4.3) % Baso % (Auto) (0.0-1.8) % Lymph # (1.2-5.4) K/mm3 [place] # (0.0-0.8) K/mm3 Eos # (0.0-0.4) K/mm3 Baso # (0.0-0.1) K/mm3 Seg Neutrophils % (40.0-70.0) % Seg Neutrophils # (1.8-7.7) K/mm3 VBG pH (7.320-7.420) Carboxyhemoglobin 2.2 Sodium 139 (137-145) mmol/L Potassium 5.0 (3.6-5.0) mmol/L Chloride 89.2 L (98-107) mmol/L Carbon Dioxide 16 L (22-30) mmol/L Anion Gap 39 mmol/L BUN 19 (9-20) mg/dL Creatinine 1.0 (0.8-1.5) mg/dL Estimated GFR > 60 ml/min BUN/Creatinine Ratio 19 % Glucose 637 H* (75-100) mg/dL POC Glucose (70-105) Calcium 9.5 (8.4-10.2) mg/dL Phosphorus 5.20 H (2.5-4.5) mg/dL Magnesium 1.90 (1.7-2.3) mg/dL Total Bilirubin (0.1-1.2) mg/dL AST (5-40) units/L ALT (7-56) units/L Alkaline Phosphatase (35-129) units/L Total Protein (6.3-8.2) g/dL Albumin (3.9-5) g/dL Albumin/Globulin Ratio % Urine Color (Yellow) Urine Turbidity (Clear) Urine pH (5.0-7.0) Ur Specific [place] (1.003-1.030) Urine Protein (Negative) mg/dL Urine Glucose (UA) (Negative) mg/dL Urine Ketones (Negative) mg/dL Urine Blood (Negative) Urine Nitrite (Negative) Urine Bilirubin (Negative) Urine Urobilinogen (<2.0) mg/dL Ur Leukocyte Esterase (Negative) Urine WBC (Auto) (0.0-6.0) /HPF Urine RBC (Auto) (0.0-6.0) /HPF Urine Mucus /HPF - Medical Decision Making Differential diagnosis, including but not limited to: Gas exposure, carbon monoxide poisoning, diabetic ketoacidosis, hyperosmolar state Assessment and plan: 21 Year-old male with hyperglycemia, nonspecific constitutional symptoms, found to have an anion gap acidosis, hyperglycemia, normal carbon monoxide level, GCS of 15, NIH score of 0, unremarkable physical exam, physical exam, history suggestive of diabetic ketoacidosis. Patient will be started on DKA protocol. Case discussed with Hospital physician, Dr. Painting, and critical care physician, Dr. KENNY, who accepted the patient to the medical service, and agree with placement into the ICU respectively. Critical Care Time: Yes Critical care time in (mins) excluding proc time.: 45 Critical care attestation.: If time is entered above; I have spent that time in minutes in the direct care of this critically ill patient, excluding procedure time. ED Disposition Clinical Impression: DKA (diabetic ketoacidoses) Disposition: DC-09 OP ADMIT IP TO THIS HOSP Is pt being admited?: Yes Condition: Critical
[2017-09-03] MEDS ORDERED: KCL 10MEQ/100ML 10 MEQ/100 ML BAG IV SCH (23:45)
[2017-09-03] MEDS ORDERED: NovoLIN R 100 UNITS in NACL 0.9% 99 ML IV SCH (23:45)
[2017-09-03] MEDS ORDERED: SODIUM CHLORIDE FLUSH SYRINGE 10 ML IV NR (23:45)
[2017-09-04 00:13] LABS: BUN/Creatinine Ratio 19; Blood Urea Nitrogen 19 mg/dL (9-20); Calcium 9.5 mg/dL (8.4-10.2); Hemolysis Index 11; Magnesium 1.9 mg/dL (1.7-2.3)
[2017-09-04] MEDS ORDERED: D50W (25GM) Syringe IV PRN ×3 (00:37→14:10)
[2017-09-04] MEDS ORDERED: ALUM-MAG HYDROX-SIMETH 200-200-20MG/5ML PO PRN (00:37)
[2017-09-04] MEDS ORDERED: AMBIEN PO PRN (00:37)
[2017-09-04] MEDS ORDERED: TYLENOL PO PRN (00:37)
[2017-09-04] MEDS ORDERED: NACL 0.9% 1000 ML 1,000 ML IV ONE ×2 (00:37→10:34)
[2017-09-04] MEDS ORDERED: REGLAN IV PRN (00:37)
[2017-09-04] MEDS ORDERED: MILK OF MAGNESIA PO PRN (00:37)
[2017-09-04] MEDS ORDERED: PERCOCET 5/325 PO PRN (00:37)
[2017-09-04] MEDS ORDERED: ZOFRAN IV PRN (00:37)
--- NOTE | 2017-09-04 00:37 | History and Physical Report ---
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 He describes the pain as generalized cramping things and he has been vomiting since this morning. On initial evaluation he was found to be indicated high anion gap at 36 and blood sugar greater than 600. Patient states that today she has not had any fevers or chills. No headache. No chest pain shortness of breath or palpitations he just has generalized weakness and fatigue. He got fed up and was started kit behind on his insulin over the past few days. He denies any sick contacts. Past History Past Medical History: diabetes Past Surgical History: No surgical history Social history: smoking, full code. denies: alcohol abuse, IV drug use Family history: diabetes Medications and Allergies Allergies Allergy/AdvReac Type Severity Reaction Status Date / Time No Known Allergies Allergy Unverified 08/27/15 15:25 Home Medications Medication Instructions Recorded Confirmed Last Taken Type Insulin Glargine,Hum.rec.anlog 33 units SQ HS 08/29/14 08/29/14 11/11/16 History [Lantus] Insulin Aspart [NovoLOG Flexpen] See Protocol SUB-Q ACHS #30 11/14/16 Unknown Rx insuln.pen Active Meds: Active Medications Dextrose (D50w (25gm) Syringe) 0 ml IV PRN PRN PRN Reason: Hypoglycemia Potassium Chloride/Dextrose/Sod Cl (D5w/0.45% Nacl/Kcl 20 Meq) 20 meq in 1,000 mls @ 125 mls/hr IV DIRECT JONNY Potassium Chloride (Kcl 10meq/100ml) 10 meq in 100 mls @ 100 mls/hr IV Q1H JONNY Stop: 09/04/17 03:44 Insulin Human Regular 100 (units/ Sodium Chloride) 100 mls @ 1 mls/hr IV TITR JONNY; 1 UNITS/HR PRN Reason: Protocol Sodium Chloride (Sodium Chloride Flush Syringe 10 Ml) 10 ml IV PRN NR Stop: 09/04/17 23:44 Review of Systems All systems: negative Exam - Physical Exam Narrative exam: General: the patient is awake alert oriented to time place and person. no evidence of acute distress HEENT: Head is atraumatic normocephalic,. Pupils equal round reactive to light and accommodation, extraocular movements intact. Oral mucosa dry. Oropharynx clear. No pharyngeal erythema or tonsillar exudate. Neck: Supple no JVD no thyromegaly or lymphadenopathy. Heart: Regular rate and rhythm no murmurs or gallops. S1 and S2 normal. PMI not displaced. Lungs: Clear to auscultation bilaterally. No rales rhonchi wheezing. Nonlabored breathing. Normal chest wall expansion. Abdomen: Soft, nondistended, and nontender. Normoactive bowel sounds. No hepatosplenomegaly. No abdominal masses or bruit appreciated. Extremities: No cyanosis/clubbing/ edema. Musculoskeletal: Normal range of movement all joints. No obvious deformity or tenderness to palpation. Normal muscle tone. Back: Normal alignment. No step-off. No midline or paraspinal tenderness. No CVA tenderness. Neurological: Grossly intact and nonfocal. No cerebellar signs. Cranial nerves II-12 grossly intact. Strength 5 out of 5 all 4 extremities. Sensations grossly intact. Skin: Warm and dry no rashes or bruises. Psychiatric: Normal mood. Appropriate affect and good insight and judgment. Vascular system: No lymphadenopathy. Distal pulses 2+ bilaterally. - Constitutional Vitals: Temp Pulse Resp BP Pulse Ox 99 F 75 18 121/72 100 09/03/17 19:57 09/03/17 19:57 09/03/17 19:57 09/03/17 19:57 09/03/17 19:57 Results - Labs CBC & Chem 7: 09/03/17 20:19 09/03/17 23:42 Labs: Laboratory Last Values WBC 9.0 K/mm3 (4.5-11.0) 09/03/17 20:19 RBC 5.40 M/mm3 (3.65-5.03) H 09/03/17 20:19 Hgb 15.0 gm/dl (11.8-15.2) 09/03/17 20:19 Hct 46.3 % (35.5-45.6) H 09/03/17 20:19 MCV 86 fl (84-94) 09/03/17 20:19 MCH 28 pg (28-32) 09/03/17 20:19 MCHC 32 % (32-34) 09/03/17 20:19 RDW 13.2 % (13.2-15.2) 09/03/17 20:19 Plt Count 252 K/mm3 (140-440) 09/03/17 20:19 Lymph % (Auto) 15.8 % (13.4-35.0) 09/03/17 20:19 [place] % (Auto) 2.2 % (0.0-7.3) 09/03/17 20:19 Eos % (Auto) 0.1 % (0.0-4.3) 09/03/17 20:19 Baso % (Auto) 0.6 % (0.0-1.8) 09/03/17 20:19 Lymph # 1.4 K/mm3 (1.2-5.4) 09/03/17 20:19 [place] # 0.2 K/mm3 (0.0-0.8) 09/03/17 20:19 Eos # 0.0 K/mm3 (0.0-0.4) 09/03/17 20:19 Baso # 0.1 K/mm3 (0.0-0.1) 09/03/17 20:19 Seg Neutrophils % 81.3 % (40.0-70.0) H 09/03/17 20:19 Seg Neutrophils # 7.3 K/mm3 (1.8-7.7) 09/03/17 20:19 VBG pH 7.312 (7.320-7.420) L 09/03/17 20:19 Carboxyhemoglobin 2.2 09/03/17 23:42 Sodium 139 mmol/L (137-145) 09/03/17 23:42 Potassium 5.0 mmol/L (3.6-5.0) 09/03/17 23:42 Chloride 89.2 mmol/L (98-107) L 09/03/17 23:42 Carbon Dioxide 16 mmol/L (22-30) L 09/03/17 23:42 Anion Gap 39 mmol/L 09/03/17 23:42 BUN 19 mg/dL (9-20) 09/03/17 23:42 Creatinine 1.0 mg/dL (0.8-1.5) 09/03/17 23:42 Estimated GFR > 60 ml/min 09/03/17 23:42 BUN/Creatinine Ratio 19 % 09/03/17 23:42 Glucose 632 mg/dL (75-100) H* 09/03/17 20:19 POC Glucose 482 (70-105) H 09/03/17 20:11 Calcium 9.5 mg/dL (8.4-10.2) 09/03/17 23:42 Phosphorus 5.20 mg/dL (2.5-4.5) H 09/03/17 23:42 Magnesium 1.90 mg/dL (1.7-2.3) 09/03/17 23:42 Total Bilirubin 0.60 mg/dL (0.1-1.2) 09/03/17 20:19 AST 54 units/L (5-40) H 09/03/17 20:19 ALT 30 units/L (7-56) 09/03/17 20:19 Alkaline Phosphatase 113 units/L (35-129) 09/03/17 20:19 Total Protein 7.3 g/dL (6.3-8.2) 09/03/17 20:19 Albumin 4.6 g/dL (3.9-5) 09/03/17 20:19 Albumin/Globulin Ratio 1.7 % 09/03/17 20:19 Urine Color Colorless (Yellow) 09/03/17 21:00 Urine Turbidity Clear (Clear) 09/03/17 21:00 Urine pH 5.0 (5.0-7.0) 09/03/17 21:00 Ur Specific [place] 1.028 (1.003-1.030) 09/03/17 21:00 Urine Protein <15 mg/dl mg/dL (Negative) 09/03/17 21:00 Urine Glucose (UA) >=500 mg/dL (Negative) 09/03/17 21:00 Urine Ketones 80 mg/dL (Negative) 09/03/17 21:00 Urine Blood Neg (Negative) 09/03/17 21:00 Urine Nitrite Neg (Negative) 09/03/17 21:00 Urine Bilirubin Neg (Negative) 09/03/17 21:00 Urine Urobilinogen < 2.0 mg/dL (<2.0) 09/03/17 21:00 Ur Leukocyte Esterase Neg (Negative) 09/03/17 21:00 Urine WBC (Auto) 1.0 /HPF (0.0-6.0) 09/03/17 21:00 Urine RBC (Auto) 1.0 /HPF (0.0-6.0) 09/03/17 21:00 Urine Mucus Few /HPF 09/03/17 21:00 Assessment and Plan Assessment and plan: Assessment and plan - * DKA * High anion Metabolic acidosis likely secondary to DKA * Medical noncompliance Plan - Admit to ICU Insulin drip as per protocol For the DKA protocol BMP every 4 hours Patient counseled extensively regarding the risks of medication noncompliance Especially for him being a type I diabetic Monitor CBC and electrolytes replace Electrolytes when necessary as per protocol DVT GI prophylaxis as ordered Monitor and follow the patient closely VTE prophylaxis?: Chemical, Mechanical Plan of care discussed with patient/family: Yes
[2017-09-04] MEDS ORDERED: NovoLIN R 100 UNITS in NACL 0.9% 99 ML IV SCH (01:00)
[2017-09-04] MEDS: D5W/0.45% NACL/KCL 20 MEQ 20 MEQ/1,000 ML BAG IV SCH ×2 (02:56→23:51)
[2017-09-04 03:05] LABS: Magnesium 1.9 mg/dL (1.7-2.3)
[2017-09-04 03:06] LABS: BUN/Creatinine Ratio 14; Blood Urea Nitrogen 17 mg/dL (9-20); Hemolysis Index 19
[2017-09-04 04:23] LABS: BUN/Creatinine Ratio 15; Blood Urea Nitrogen 15 mg/dL (9-20); Calcium 8.3 mg/dL (8.4-10.2); Hemolysis Index 23
[2017-09-04 08:51] LABS: BUN/Creatinine Ratio 19; Blood Urea Nitrogen 15 mg/dL (9-20); Calcium 8.2 mg/dL (8.4-10.2); Hemolysis Index 89
[2017-09-04 08:52] LABS: BUN/Creatinine Ratio 18; Blood Urea Nitrogen 14 mg/dL (9-20); Calcium 8.2 mg/dL (8.4-10.2); Hemolysis Index 66
[2017-09-04] MEDS ORDERED: NACL 0.9% 1000 ML 1,000 ML ONE (10:29)
[2017-09-04] MEDS: LOVENOX SUB-Q SCH (12:10)
[2017-09-04 13:00] LABS: BUN/Creatinine Ratio 15; Blood Urea Nitrogen 15 mg/dL (9-20); Calcium 8.1 mg/dL (8.4-10.2); Hemolysis Index 3
[2017-09-04 19:58] LABS: BUN/Creatinine Ratio 14; Blood Urea Nitrogen 13 mg/dL (9-20); Calcium 8.4 mg/dL (8.4-10.2); Hemolysis Index 5
--- NOTE | 2017-09-04 20:20 | Consultation ---
History of Present Illness Consult date: 09/04/17 Requesting physician: RACHEL ARGUETA Reason for consult: other (DKA) History of present illness: PULMONARY/CCM CONSULT NOTE Initial consult for DKA Doing better and transferred to regular floor Please re-consult if necessary Thanks Past History Past Medical History: diabetes Past Surgical History: No surgical history Social history: smoking, full code. denies: alcohol abuse, IV drug use Family history: diabetes Medications and Allergies Allergies Allergy/AdvReac Type Severity Reaction Status Date / Time No Known Allergies Allergy Unverified 08/27/15 15:25 Home Medications Medication Instructions Recorded Confirmed Last Taken Type Insulin Glargine,Hum.rec.anlog 33 units SQ HS 08/29/14 09/04/17 11/11/16 History [Lantus] Insulin Aspart [NovoLOG Flexpen] See Protocol SUB-Q ACHS #30 11/14/16 09/04/17 Unknown Rx insuln.pen Active Meds: Active Medications Acetaminophen (Tylenol) 650 mg PO Q6H PRN PRN Reason: Pain MILD(1-3)/Fever >100.5/MATTHEWS Al Hydrox/Mg Hydrox/Simethicone (Alum-Mag Hydrox-Simeth [id number]/5ml) 30 ml PO Q4H PRN PRN Reason: Indigestion Dextrose (D50w (25gm) Syringe) 0 ml IV PRN PRN PRN Reason: Hypoglycemia Dextrose (D50w (25gm) Syringe) 50 ml IV PRN PRN PRN Reason: Hypoglycemia Enoxaparin Sodium (Lovenox) 40 mg SUB-Q QDAY JONNY Last Admin: 09/04/17 12:10 Dose: 40 mg Potassium Chloride/Dextrose/Sod Cl (D5w/0.45% Nacl/Kcl 20 Meq) 20 meq in 1,000 mls @ 125 mls/hr IV DIRECT JONNY Last Admin: 09/04/17 02:56 Dose: 125 mls/hr Insulin Human Regular 100 (units/ Sodium Chloride) 100 mls @ 1 mls/hr IV TITR JONNY; 1 UNITS/HR PRN Reason: Protocol Stop: 09/05/17 14:20 Last Titration: 09/04/17 13:48 Dose: 6 units/hr, 6 mls/hr Insulin Human Regular (Novolin R) 0 units SUB-Q ACHS JONNY PRN Reason: Protocol Last Admin: 09/04/17 17:13 Dose: 3 units Magnesium Hydroxide (Milk Of Magnesia) 30 ml PO Q4H PRN PRN Reason: Constipation Metoclopramide HCl (Reglan) 10 mg IV Q6H PRN PRN Reason: Nausea And Vomiting Ondansetron HCl (Zofran) 4 mg IV Q8H PRN PRN Reason: N/V unrelieved by Reglan Oxycodone/Acetaminophen (Percocet 5/325) 1 tab PO Q6H PRN PRN Reason: Pain, Moderate (4-6) Sodium Chloride (Sodium Chloride Flush Syringe 10 Ml) 10 ml IV PRN NR Stop: 09/04/17 23:44 Zolpidem Tartrate (Ambien) 5 mg PO QHS PRN PRN Reason: Sleeplessness Physical Examination Vital signs: Vital Signs Temp Pulse Resp BP Pulse Ox 99 F 75 18 121/72 100 09/03/17 19:57 09/03/17 19:57 09/03/17 19:57 09/03/17 19:57 09/03/17 19:57 Results - Laboratory Findings CBC and BMP: 09/05/17 05:51 09/05/17 05:51 Abnormal lab findings: Abnormal Labs 09/03/17 09/03/17 09/03/17 20:11 20:19 20:19 RBC 5.40 H Hct 46.3 H Seg Neutrophils % 81.3 H VBG pH Sodium 136 L Chloride 87.0 L Carbon Dioxide 19 L Glucose 632 H* POC Glucose 482 H Hemoglobin A1c Calcium Phosphorus AST 54 H 09/03/17 09/03/17 09/03/17 20:19 23:42 23:42 RBC Hct Seg Neutrophils % VBG pH 7.312 L Sodium Chloride 89.2 L Carbon Dioxide 16 L Glucose 637 H* POC Glucose Hemoglobin A1c Calcium Phosphorus 5.20 H AST 09/04/17 09/04/17 09/04/17 00:31 01:37 02:32 RBC Hct Seg Neutrophils % VBG pH Sodium Chloride Carbon Dioxide Glucose POC Glucose > 500 H 411 H Hemoglobin A1c 12.8 H Calcium Phosphorus AST 09/04/17 09/04/17 09/04/17 02:32 02:50 03:48 RBC Hct Seg Neutrophils % VBG pH Sodium Chloride Carbon Dioxide 17 L 21 L Glucose 292 H 237 H POC Glucose 242 H Hemoglobin A1c Calcium 8.0 L D 8.3 L Phosphorus AST 09/04/17 09/04/17 09/04/17 03:53 04:59 06:04 RBC Hct Seg Neutrophils % VBG pH Sodium Chloride Carbon Dioxide Glucose POC Glucose 235 H 192 H 157 H Hemoglobin A1c Calcium Phosphorus AST 09/04/17 09/04/17 09/04/17 07:06 07:39 07:39 RBC Hct Seg Neutrophils % VBG pH Sodium Chloride Carbon Dioxide Glucose 142 H 144 H POC Glucose 153 H Hemoglobin A1c Calcium 8.2 L 8.2 L Phosphorus AST 09/04/17 09/04/17 09/04/17 08:03 10:27 11:24 RBC Hct Seg Neutrophils % VBG pH Sodium Chloride Carbon Dioxide Glucose POC Glucose 144 H 293 H 294 H Hemoglobin A1c Calcium Phosphorus AST 09/04/17 09/04/17 09/04/17 12:10 12:43 13:49 RBC Hct Seg Neutrophils % VBG pH Sodium Chloride Carbon Dioxide Glucose 272 H POC Glucose 205 H 262 H Hemoglobin A1c Calcium 8.1 L Phosphorus AST 09/04/17 09/04/17 15:58 19:04 RBC Hct Seg Neutrophils % VBG pH Sodium Chloride 96.5 L Carbon Dioxide Glucose 236 H POC Glucose 209 H Hemoglobin A1c Calcium Phosphorus AST
[2017-09-04 23:46] LABS: BUN/Creatinine Ratio 14; Blood Urea Nitrogen 11 mg/dL (9-20); Calcium 8.6 mg/dL (8.4-10.2); Hemolysis Index 8
[2017-09-05 06:22] LABS: Basophils # (Auto) 0.1 K/mm3 (0.0-0.1); Basophils % (Auto) 0.8 % (0.0-1.8); Eosinophils # (Auto) 0.1 K/mm3 (0.0-0.4); Eosinophils % (Auto) 0.8 % (0.0-4.3); Hematocrit 39.3 % (35.5-45.6); Hemoglobin 12.9 gm/dl (11.8-15.2); Lymphocytes # (Auto) 2.7 K/mm3 (1.2-5.4); Lymphocytes % (Auto) 33.1 % (13.4-35.0); Mean Corpuscular HGB Conc 33 % (32-34); Mean Corpuscular Hemoglobin 28 pg (28-32); Mean Corpuscular Volume 85 fl (84-94); Monocytes # (Auto) 0.3 K/mm3 (0.0-0.8); Monocytes % (Auto) 3.9 % (0.0-7.3); Platelet Count 194 K/mm3 (140-440)
[2017-09-05 06:40] LABS: Alanine Aminotransferase 26 units/L (7-56); Albumin 3.1 g/dL (3.9-5); BUN/Creatinine Ratio 14; Blood Urea Nitrogen 10 mg/dL (9-20); Calcium 8.3 mg/dL (8.4-10.2); Hemolysis Index 8
[2017-09-05] MEDS: LOVENOX SUB-Q SCH (09:59)
--- NOTE | 2017-09-05 11:28 | Progress Note ---
Assessment and Plan Assessment and plan: DKA. Resolved. Patient has been transitioned to long-acting insulin. However , blood glucose still in the 380 range this morning. Resume his home regimen of Lantus insulin at bedtime. Continue Accu-Cheks and sliding scale insulin. Diabetes mellitus type 1. As above. Medical noncompliance. Patient has been counseled. Disposition. Anticipate discharge in a.m. History Interval history: No new issues overnight. Hospitalist Physical - Constitutional Vitals: Temp Pulse Resp BP Pulse Ox 98.6 F 63 16 110/81 100 09/05/17 08:14 09/05/17 08:14 09/05/17 08:14 09/05/17 08:14 09/05/17 08:14 General appearance: Present: no acute distress, well-nourished - EENT Eyes: Present: PERRL, EOM intact ENT: hearing intact, clear oral mucosa, dentition normal - Neck Neck: Present: supple, normal ROM - Respiratory Respiratory effort: normal Respiratory: bilateral: CTA - Cardiovascular Rhythm: regular Heart Sounds: Present: S1 & S2. Absent: gallop, rub - Extremities Extremities: no ischemia, No edema, Full ROM - Abdominal General gastrointestinal: soft, non-tender, non-distended, normal bowel sounds - Integumentary Integumentary: Present: clear, warm, dry - Neurologic Neurologic: CNII-XII intact, moves all extremities Results - Labs CBC & Chem 7: 09/05/17 05:51 09/05/17 05:51 Labs: Laboratory Last Values WBC 8.2 K/mm3 (4.5-11.0) 09/05/17 05:51 RBC 4.60 M/mm3 (3.65-5.03) 09/05/17 05:51 Hgb 12.9 gm/dl (11.8-15.2) 09/05/17 05:51 Hct 39.3 % (35.5-45.6) D 09/05/17 05:51 MCV 85 fl (84-94) 09/05/17 05:51 MCH 28 pg (28-32) 09/05/17 05:51 MCHC 33 % (32-34) 09/05/17 05:51 RDW 13.0 % (13.2-15.2) L 09/05/17 05:51 Plt Count 194 K/mm3 (140-440) 09/05/17 05:51 Lymph % (Auto) 33.1 % (13.4-35.0) 09/05/17 05:51 [place] % (Auto) 3.9 % (0.0-7.3) 09/05/17 05:51 Eos % (Auto) 0.8 % (0.0-4.3) 09/05/17 05:51 Baso % (Auto) 0.8 % (0.0-1.8) 09/05/17 05:51 Lymph # 2.7 K/mm3 (1.2-5.4) 09/05/17 05:51 [place] # 0.3 K/mm3 (0.0-0.8) 09/05/17 05:51 Eos # 0.1 K/mm3 (0.0-0.4) 09/05/17 05:51 Baso # 0.1 K/mm3 (0.0-0.1) 09/05/17 05:51 Seg Neutrophils % 61.4 % (40.0-70.0) 09/05/17 05:51 Seg Neutrophils # 5.1 K/mm3 (1.8-7.7) 09/05/17 05:51 VBG pH 7.312 (7.320-7.420) L 09/03/17 20:19 Carboxyhemoglobin 2.2 09/03/17 23:42 Sodium 135 mmol/L (137-145) L 09/05/17 05:51 Potassium 3.9 mmol/L (3.6-5.0) 09/05/17 05:51 Chloride 97.9 mmol/L (98-107) L 09/05/17 05:51 Carbon Dioxide 25 mmol/L (22-30) 09/05/17 05:51 Anion Gap 16 mmol/L 09/05/17 05:51 BUN 10 mg/dL (9-20) 09/05/17 05:51 Creatinine 0.7 mg/dL (0.8-1.5) L 09/05/17 05:51 Estimated GFR > 60 ml/min 09/05/17 05:51 BUN/Creatinine Ratio 14 % 09/05/17 05:51 Glucose 359 mg/dL (75-100) H 09/05/17 05:51 POC Glucose 373 (70-105) H 09/05/17 06:01 Hemoglobin A1c 12.8 % (4-6) H 09/04/17 02:32 Calcium 8.3 mg/dL (8.4-10.2) L 09/05/17 05:51 Phosphorus 1.80 mg/dL (2.5-4.5) L D 09/05/17 05:51 Magnesium 1.80 mg/dL (1.7-2.3) 09/05/17 05:51 Total Bilirubin 0.70 mg/dL (0.1-1.2) 09/05/17 05:51 AST 40 units/L (5-40) 09/05/17 05:51 ALT 26 units/L (7-56) 09/05/17 05:51 Alkaline Phosphatase 84 units/L (35-129) 09/05/17 05:51 Total Protein 5.6 g/dL (6.3-8.2) L D 09/05/17 05:51 Albumin 3.1 g/dL (3.9-5) L 09/05/17 05:51 Albumin/Globulin Ratio 1.2 % 09/05/17 05:51 Urine Color Colorless (Yellow) 09/03/17 21:00 Urine Turbidity Clear (Clear) 09/03/17 21:00 Urine pH 5.0 (5.0-7.0) 09/03/17 21:00 Ur Specific [place] 1.028 (1.003-1.030) 09/03/17 21:00 Urine Protein <15 mg/dl mg/dL (Negative) 09/03/17 21:00 Urine Glucose (UA) >=500 mg/dL (Negative) 09/03/17 21:00 Urine Ketones 80 mg/dL (Negative) 09/03/17 21:00 Urine Blood Neg (Negative) 09/03/17 21:00 Urine Nitrite Neg (Negative) 09/03/17 21:00 Urine Bilirubin Neg (Negative) 09/03/17 21:00 Urine Urobilinogen < 2.0 mg/dL (<2.0) 09/03/17 21:00 Ur Leukocyte Esterase Neg (Negative) 09/03/17 21:00 Urine WBC (Auto) 1.0 /HPF (0.0-6.0) 09/03/17 21:00 Urine RBC (Auto) 1.0 /HPF (0.0-6.0) 09/03/17 21:00 Urine Mucus Few /HPF 09/03/17 21:00
[2017-09-05 16:10] VITALS: BP 117/74
[2017-09-05] MEDS ORDERED: LEVEMIR SUB-Q SCH (22:00)
--- NOTE | 2017-09-06 07:51 | Discharge Summary ---
Providers - Providers Date of Admission: 09/04/17 00:37 Date of discharge: 09/05/17 Attending physician: THAIS HIDALGO 09/03/17 23:17 Consult to Physician [CONS] Urgent Consulting Provider: HALEIGH LAWSON Reason For Exam: dka Place consult to:: Dr. Lawson Notified:: Answering Service Phone number called:: [phone] Was contact made?: Yes If yes, spoke with:: Dr. Lawson Time called:: 00:03 Comment:: Dr. Chaudhari (er dr) spoke with Dr. Lawson Primary care physician: ELEANOR WALLACE Hospitalization Reason for admission: DKA Condition: Critical Hospital course: Patient is a 20-year-old -[place] male with a history of juvenile diabetes presented to the ER for abdominal pain nausea vomiting and diarrhea. He describes the pain as generalized cramping things and he has been vomiting [employer]. On initial evaluation, he was found to be indicated high anion gap at 36 and blood sugar greater than 600. The patient was admitted to the ICU with diagnosis of DKA and started on insulin drip. Patient's anion gap closed and he was transitioned to long-acting insulin and transferred to the floor. Patient's blood sugar remained high on the third hospital day and adjustments were made with his insulin. Unfortunately, according to the nurse's notes, patient left AMA on 09/05/17. Dedicated discharge time 32 minutes. Disposition: DC-07 LEFT AGAINST MED ADVICE Core Measure Documentation - Palliative Care Palliative Care/ Comfort Measures: Not Applicable - Core Measures Any of the following diagnoses?: none Exam - Constitutional Vitals: Temp Pulse Resp BP Pulse Ox 98.3 F 63 18 117/74 100 09/05/17 15:01 09/05/17 08:14 09/05/17 15:01 09/05/17 15:01 09/05/17 08:14 General appearance: Present: no acute distress, well-nourished - EENT Eyes: Present: PERRL ENT: hearing intact, clear oral mucosa - Neck Neck: Present: supple, normal ROM - Respiratory Respiratory effort: normal Respiratory: bilateral: CTA - Cardiovascular Heart Sounds: Present: S1 & S2. Absent: rub, click - Extremities Extremities: pulses symmetrical, No edema Peripheral Pulses: within normal limits - Abdominal General gastrointestinal: Present: soft, non-tender, non-distended, normal bowel sounds Male genitourinary: Present: normal - Integumentary Integumentary: Present: clear, warm, dry - Musculoskeletal Musculoskeletal: gait normal, strength equal bilaterally - Psychiatric Psychiatric: appropriate mood/affect, intact judgment & insight - Neurologic Neurologic: CNII-XII intact, moves all extremities Plan Activity: no restrictions Weight Bearing Status: Full Weight Bearing Diet: diabetic Follow up with: ELEANOR WALLACE MD [Primary Care Provider] - 3-5 Days
--- NOTE | 2017-09-11 10:21 | Query- Nutrition ---
Dear ____Otis Date: 09/11/17 [employer]idential [employer] Assistant/CDS:____Negar / Dorian Phone#:____[phone] Exercise your independent professional judgment when responding to query. Questions asked do not imply a particular answer is desired or expected. We greatly appreciate your clarification on this issue. Clinical Documentation States: 21 year old male was admitted on 09/04/17 The discharge summary (Dr. Berg) states " Patient is a 20-year-old - [place] male with a history of juvenile diabetes presented to the ER for abdominal pain nausea vomiting and diarrhea. LEFT AGAINST MED ADVICE " Clinical Findings Show: BMI: 16.7 Albumin: 3.1 Please select the most appropriate option 3 [] Mild Malnutrition [x] Mild - Moderate Malnutrition [] Moderate - Severe Malnutrition [] Severe Malnutrition Serum Albumin 2.8 to 3.4 g/dl or Pre-albumin 5 to 17 mg/dl1,2 Inadequate nutritional intake1,2,3,4 NPO > 5 days Weight loss: 5% in 1 month or 7.5% in 3 months or 10% in 6 months1, 3,4 BMI 16 to 18.4 or Weight <90% of ideal body weight1,2,3,4 Serum Albumin < 2.8 g/ dl1,2 Lymphocytes < 1500/ L2 Inadequate nutritional intake3, high stress e.g. major trauma, sepsis,pancreatitis, renteria etc. Decubitus ulcers1,2, , skin breakdown2, easy hair pluckability2 Weight <80% standard for height2 Triceps skin fold <3 mm2 Mid-arm muscle circumference <15 cm2 Creatinine-height index <60% standard2 [ ] Cachexia [ ] Emaciated w/Malnutrition [ ] Other: [ ] Unable to determine [ ] Comment/Explanation: Present on Admission: [ x] Yes (Y) [ ] Clinically undeterminable (W) [ ] No (N) Please also document response in your Progress Notes and/or Discharge Summary and indicate if the condition was present on admission. MTDD
== END 2017-09-05 18:00 | disposition left against medical advice (07) | DRG 638 ==
LOC: ED 19:12 → CC1 09-04 00:37 → 3A 09-04 15:36
PROVIDERS: ADMIT Internal Medicine Geriatric Medicine; ATTEND Hospitalist
DX: E10.10 Type 1 diabetes mellitus with ketoacidosis without coma (principal); E44.0 Moderate protein-calorie malnutrition; Z68.1 Body mass index [BMI] 19.9 or less, adult; F17.200 Nicotine dependence, unspecified, uncomplicated; Z83.3 Family history of diabetes mellitus; Z91.19 Patient's noncompliance with other medical treatment and regimen
CPT/HCPCS: 36415; 80048; 80053; 81001; 82375; 82805; 82962; 83036; 83735; 84100; 85025; J1650; J1815; J1818; J2765; J3480; J7030; Q0162